=== PATIENT | female | born 2000 | race Caucasian/White ===

== ENCOUNTER 2024-03-17 08:11 | Outpatient (CLI) | payer OTHER ==
--- NOTE | 2024-03-17 09:48 | XRAY Report ---
PROCEDURE: Chest 2V INDICATIONS: SHORTNESS OF BREATH TECHNIQUE: 2 views of the chest were acquired. COMPARISON: None. FINDINGS: Surgical changes and devices: None. Lungs and pleura: No pleural effusions or pneumothorax. Lungs are clear. Mediastinum: Mediastinal contours appear normal. Heart size is normal. Bones and chest wall: No suspicious bony lesions. Overlying soft tissues appear unremarkable. IMPRESSION: No acute cardiopulmonary process. Reviewed by: Richie Cristina MD on 03/17/2024 9:47 AM PDT Approved by: Richie Cristina MD on 03/17/2024 9:47 AM PDT Station ID: [id number]
== END 2024-03-17 08:12 | disposition home or self-care (01) ==
LOC: DI.N 08:11
PROVIDERS: ATTEND Physician Assistant Medical
DX: R06.02 Shortness of breath (principal)